=== PATIENT | female | born 1970 | race Caucasian/White ===

== ENCOUNTER 2017-06-19 08:03 | Emergency (ER) | payer MEDICARE ==
[2014-03-14 10:05] VITALS: BMI 22.0
[~2017-06-19 08:03] MED LIST: HYDROCODONE-APA1 TAB PO; MULTI-DAY VITAM1 TAB PO; PHENERGAN25 MG RC; SOMA350 MG PO; TOPAMAX25 MG PO; VITAMIN B-121000 MC3 PO; ZOFRAN ODT4 MG/UDTAB PO
== END 2017-06-19 08:57 | disposition home or self-care (01) ==
LOC: D.ER 08:03
DX: S67.02XA Crushing injury of left thumb, initial encounter (principal); W20.8XXA Other cause of strike by thrown, projected or falling object, initial encounter; Y93.89 Activity, other specified; Y92.029 Unspecified place in mobile home as the place of occurrence of the external cause; S61.002A Unspecified open wound of left thumb without damage to nail, initial encounter; L08.9 Local infection of the skin and subcutaneous tissue, unspecified

== ENCOUNTER 2017-12-07 18:43 | Emergency (ER) | payer MEDICARE ==
[2014-03-14 10:05] VITALS: BMI 22.0
== END 2017-12-07 21:05 | disposition home or self-care (01) ==
LOC: D.ER 18:43
DX: J18.9 Pneumonia, unspecified organism (principal)

== ENCOUNTER 2018-06-14 20:26 | Emergency (ER) | payer MEDICARE, MEDICAID ==
[~2018-06-14] VITALS: Ht 157.5 cm; Wt 54.5 kg
[2018-06-14 20:30] VITALS: Ht 157.5 cm; Wt 54.5 kg
[2018-06-14] MEDS ORDERED: XANAX0.5 MG PO (20:34)
[2018-06-14 21:56] LABS: BASOPHILS 0.2 % (0-2); EOSINOPHILS 0 % (0-7); HEMATOCRIT 37.6 % (36.0-48.0); HEMOGLOBIN 12.9 g/dL (12-16); IMMATURE GRANULOCYTES 0.3 % (0-5); LYMPHOCYTES 4.4 % (15-50); MCH 33.4 pg (26.0-34.0); MCHC 34.3 g/dL (31.0-37.0); MCV 97.4 fL (80.0-100.0); MEAN PLATELET VOLUME 9.2 fL (7.4-10.4); MONOCYTES 7.5 % (2-11); NEUTROPHILS 87.6 % (40-80); RBC 3.86 10x6/uL (4.00-5.40); RDW 13.3 % (11.5-14.5); WBC 12.2 10x3/uL (4.8-10.8)
[2018-06-14 22:01] LABS: PLATELET COUNT 322 10x3/uL (130-400)
[2018-06-14 22:15] LABS: ALBUMIN 4.1 g/dL (3.4-5.0); ANION GAP 20.5 mmol/L (8-16); BILIRUBIN - TOTAL 0.55 mg/dL (0.2-1.3); CARBON DIOXIDE 22.4 mmol/L (21.0-32.0); CREATININE - SERUM 1.5 mg/dL (0.6-1.3); POTASSIUM - SERUM 3.9 mmol/L (3.5-5.1); PROTEIN - SERUM 7.9 g/dL (6.4-8.2)
[2018-06-14 22:43] LABS: APPEARANCE CLEAR (CLEAR); BILIRUBIN NEGATIVE (NEGATIVE); COLOR YELLOW (YELLOW); GLUCOSE NEGATIVE (NEGATIVE); KETONE MODERATE mg/dL (NEGATIVE); NITRITE NEGATIVE (NEGATIVE); PROTEIN TRACE mg/dL (NEGATIVE); UROBILINOGEN NORMAL (NORMAL)
[2018-06-14] MEDS ORDERED: PHENERGAN25 M1 PO (23:10)
[2018-06-14] MEDS ORDERED: ZOFRAN ODT4 MG/UDTAB PO (23:10)
[2018-06-14 23:25] VITALS: BP 124/91
== END 2018-06-14 23:25 | disposition home or self-care (01) ==
LOC: D.ER 20:26
PROVIDERS: Family Medicine
DX: A08.4 Viral intestinal infection, unspecified (principal); F41.9 Anxiety disorder, unspecified; R11.0 Nausea; K21.9 Gastro-esophageal reflux disease without esophagitis

== ENCOUNTER 2020-03-17 16:21 | Inpatient (IN) | payer MEDICARE, MEDICAID ==
[~2020-03-17] VITALS: Ht 157.5 cm; Wt 56.0 kg
[~2020-03-17 16:21] MED LIST changes: +PHENERGAN25 M1 PO; +XANAX0.5 MG PO
[2020-03-17 16:53] LABS: HEMATOCRIT 41.4 % (36.0-48.0); HEMOGLOBIN 14.1 g/dL (12-16); LYMPHOCYTES 9.6 % (15-50); MCH 31.8 pg (26.0-34.0); MCHC 34.1 g/dL (31.0-37.0); MCV 93.2 fL (80.0-100.0); MEAN PLATELET VOLUME 8.4 fL (7.4-10.4); NEUTROPHILS 81.2 % (40-80); RBC 4.44 10x6/uL (4.00-5.40); WBC 13.3 10x3/uL (4.8-10.8)
[2020-03-17 16:55] LABS: PLATELET COUNT 483 10x3/uL (130-400)
[2020-03-17 16:56] VITALS: BP 115/95
[2020-03-17 16:57] LABS: BILIRUBIN NEGATIVE (NEGATIVE); GLUCOSE NEGATIVE (NEGATIVE); KETONE NEGATIVE (NEGATIVE); NITRITE NEGATIVE (NEGATIVE); SPECIFIC GRAVITY 1.025 (1.005-1.020); UROBILINOGEN NORMAL (NORMAL)
[2020-03-17 16:58] LABS: BACTERIA MANY /hpf (NEGATIVE); EPITHELIAL CELLS 0-5 /hpf (0-5); GRANULAR CAST 0-5 /lpf (NONE SEEN); HYALINE CAST 0-5 /lpf (NONE SEEN); WHITE CELLS - URINE 0-5 /hpf (NEGATIVE)
[2020-03-17 17:10] LABS: ALBUMIN 4.7 g/dL (3.4-5.0); ANION GAP 14.9 mmol/L (8-16); BILIRUBIN - TOTAL 0.46 mg/dL (0.2-1.3); CALCIUM 9.8 mg/dL (8.5-10.1); CARBON DIOXIDE 30.6 mmol/L (21.0-32.0); CREATININE - SERUM 2.2 mg/dL (0.6-1.3); PROTEIN - SERUM 8.8 g/dL (6.4-8.2); TROPONIN-I 0.052 ng/mL (0.000-0.060)
[2020-03-17 17:12] LABS: POTASSIUM - SERUM 2.5 mmol/L (3.5-5.1)
--- NOTE | 2020-03-17 19:45 | NUR ---
PT ARRIVED TO FLOOR FROM ER DURING SHIFT CHANGE. IV INFUSING ZOFRAN, KCL RIDE(2 OF 2) AND NS BOLUS ON TRANSFER. HUNG NS W/20 K @ 125 CONTINUOUS. BILAT HANDS CRAMPED/DRAWN UP. UNABLE TO HOLD PHONE OR GRASP. PT STATED HER HANDS STARTED "DRAWING UP" 2 DAYS AGO. C/O CRAMPING PAIN IN HANDS, LEGS AND FEET 04/05. REVIEWED HISTORY AND HOME MEDS. PROVIDED INCENTIVE SPIROMETER AND INSTRUCTED ON USE. PT REFUSES SCD'S. BED ALARM ON. FALL PRECAUTIONS IN PLACE. WILL CONTINUE TO MONITOR.
[2020-03-17] MEDS ORDERED: XANAX1 MG PO (20:12)
[2020-03-17] MEDS ORDERED: SOMA350 MG PO (20:13)
[2020-03-17] MEDS ORDERED: HYDROCODON-ACE1 EA10 PO (20:14)
[2020-03-17] MEDS ORDERED: PHENERGAN25 MG RC (20:17)
[2020-03-18 03:06] VITALS: BP 118/88; BMI 21.8
[2020-03-18 05:10] VITALS: BP 154/87
[2020-03-18 05:15] LABS: HEMATOCRIT 35.3 % (36.0-48.0); LYMPHOCYTES 12.1 % (15-50); MCV 94.1 fL (80.0-100.0); MEAN PLATELET VOLUME 8.7 fL (7.4-10.4); NEUTROPHILS 78.9 % (40-80); RBC 3.75 10x6/uL (4.00-5.40); RDW 14.4 % (11.5-14.5); WBC 10.8 10x3/uL (4.8-10.8)
[2020-03-18 05:19] LABS: PLATELET COUNT 380 10x3/uL (130-400)
[2020-03-18 05:25] LABS: ANION GAP 13.1 mmol/L (8-16); CALCIUM 8.2 mg/dL (8.5-10.1); CARBON DIOXIDE 26.2 mmol/L (21.0-32.0)
[2020-03-18 05:26] LABS: CREATININE - SERUM 1.5 mg/dL (0.6-1.3); POTASSIUM - SERUM 3.3 mmol/L (3.5-5.1)
--- NOTE | 2020-03-18 06:15 | NUR ---
COLLECTED 0500 UA BY IN/OUT CATH ORDERED AND SENT TO LAB. POTASSIUM 3.3 THIS AM. PT STILL NAUSEATED AND UNABLE TO HOLD WATER DOWN. HUNG KCL 10 MEQ RIDER PER 1 OF 4 PER PROTOCOL. NO OTHER NEEDS. WILL CONTINUE TO MONITOR.
--- NOTE | 2020-03-18 07:30 | NUR ---
PT RESTING IN BED, REPORTS SMALL AMOUNT OF VOMITUS THIS AM. REPORTS PAIN 6/10 AT THIS TIME. IV TO LEFT FOREARM WITH NS W/ 20KCL @ 125ML/HR, ZOFRAN @ 4.7ML/HR BOTH INFUSING VIA PUMP. SITE WITHOUT REDNESS OR EDEMA. PT CONTINUES TO VOICE NAUSEA AT TIMES AND REQUEST PO OR SUPPOSITORY PHENERGAN. INFORMED PT THAT WOULD TALK WITH MD REGARDING THIS MATTER. PT WAS RECEPTIVE TO THIS. PT DENIES NEEDS AT THIS TIME. CL WITHIN REACH. ENCOURAGED TO CALL WITH NEEDS. CONTINUE POC
[2020-03-18 08:36] VITALS: BP 140/93
[2020-03-18 08:36] LABS: BILIRUBIN NEGATIVE (NEGATIVE); GLUCOSE NEGATIVE (NEGATIVE); KETONE NEGATIVE (NEGATIVE); NITRITE POSITIVE (NEGATIVE); UROBILINOGEN NORMAL (NORMAL)
[2020-03-18 08:37] LABS: BACTERIA MANY /hpf (NEGATIVE); RED CELLS - URINE 0-5 /hpf (0-5); WHITE CELLS - URINE 0-5 /hpf (NEGATIVE)
[2020-03-18 08:38] LABS: EPITHELIAL CELLS OCC /hpf (0-5)
[2020-03-18 12:11] VITALS: Ht 157.5 cm; Wt 56.0 kg
[2020-03-18 12:24] VITALS: BP 159/83
[2020-03-18 16:15] VITALS: BP 153/96
--- NOTE | 2020-03-18 17:55 | NUR ---
PT REPORTS CONTINUED EMESIS THROUGHOUT THE DAY, PARTICULARLY UPON ATTEMPTING TO DRINK WATER OR CONSUME ICE CHIPS. ZOFRAN CONTINUES TO INFUSE @ 4.7ML/HR. PT REQUEST PHENERGAN SUPPOSITORY. ADMINISTERED PHENERGAN PER MD ORDERS. AN ADDITIONAL 100ML OF CLEAR LIGHT GREEN EMESIS NOTED AT THIS TIME. WILL CONTINUE TO MONITOR NAUSEA AND VOMITING POST PHENERGAN SUPPOSITORY.
[2020-03-18 20:27] VITALS: BP 129/93
[2020-03-19 00:33] VITALS: BP 124/86
[2020-03-19 04:00] VITALS: BP 148/92
[2020-03-19 05:55] LABS: BASOPHILS 0.1 % (0-2); EOSINOPHILS 0.4 % (0-7); HEMATOCRIT 33.1 % (36.0-48.0); HEMOGLOBIN 11.2 g/dL (12-16); IMMATURE GRANULOCYTES 0.4 % (0-5); MCH 32.3 pg (26.0-34.0); MCHC 33.8 g/dL (31.0-37.0); MCV 95.4 fL (80.0-100.0); MEAN PLATELET VOLUME 9.1 fL (7.4-10.4); MONOCYTES 9.2 % (2-11); NEUTROPHILS 77.9 % (40-80); PLATELET COUNT 338 10x3/uL (130-400); RBC 3.47 10x6/uL (4.00-5.40); RDW 14.1 % (11.5-14.5); WBC 8.2 10x3/uL (4.8-10.8)
--- NOTE | 2020-03-19 06:18 | NUR ---
I have reviewed this patient and I concur with the Shift Assessment completed by the Licensed Practical Nurse today this shift.
[2020-03-19 06:41] LABS: ANION GAP 13.7 mmol/L (8-16); BILIRUBIN - TOTAL 0.37 mg/dL (0.2-1.3); CALCIUM 8.1 mg/dL (8.5-10.1); CARBON DIOXIDE 24.5 mmol/L (21.0-32.0); POTASSIUM - SERUM 4.2 mmol/L (3.5-5.1)
[2020-03-19 06:56] LABS: PROTEIN - SERUM 5.7 g/dL (6.4-8.2)
[2020-03-19 09:01] VITALS: BP 146/99
[2020-03-19 12:37] VITALS: BP 140/83
[2020-03-19 16:47] VITALS: BP 151/91
[2020-03-19 20:00] VITALS: BP 167/67
[2020-03-20] VITALS: BP 126/86
--- NOTE | 2020-03-20 00:10 | NUR ---
REC'D IN BED EYES CLOSED RESP DEEP AND EVEN.SITTING POSITION.MONITOR SHOWING SINUS RHYTHM.WILL CONTINUE TO MONITOR FOR ANY CHGES AND FOLLOW CURRENT PLAN OF CARE
--- NOTE | 2020-03-20 03:48 | NUR ---
I have reviewed this patient and I concur with the Shift Assessment completed by the Licensed Practical Nurse today this shift.
[2020-03-20 04:00] VITALS: BP 133/86
[2020-03-20 05:22] LABS: BASOPHILS 0.3 % (0-2); EOSINOPHILS 1.1 % (0-7); HEMATOCRIT 34.6 % (36.0-48.0); HEMOGLOBIN 11.6 g/dL (12-16); IMMATURE GRANULOCYTES 0.3 % (0-5); LYMPHOCYTES 18.5 % (15-50); MCH 31.9 pg (26.0-34.0); MCHC 33.5 g/dL (31.0-37.0); MCV 95.1 fL (80.0-100.0); MEAN PLATELET VOLUME 8.9 fL (7.4-10.4); NEUTROPHILS 70.8 % (40-80); PLATELET COUNT 357 10x3/uL (130-400); RBC 3.64 10x6/uL (4.00-5.40); RDW 13.4 % (11.5-14.5)
[2020-03-20 05:36] LABS: ANION GAP 10.1 mmol/L (8-16); BILIRUBIN - TOTAL 0.46 mg/dL (0.2-1.3); CALCIUM 8.8 mg/dL (8.5-10.1); CARBON DIOXIDE 27.9 mmol/L (21.0-32.0); CREATININE - SERUM 1.1 mg/dL (0.6-1.3); PROTEIN - SERUM 6.2 g/dL (6.4-8.2)
--- NOTE | 2020-03-20 07:45 | NUR ---
PT RESTING QUIETLY IN BED WITH EYES CLOSED. OPENS EYES SPONTANEOUSLY STAFF ENTERS ROOM. RESP EVEN AND UNLABORED. PT REPORTS PAIN /10 AT THIS TIME. DISCUSSED NEXT TIME PAIN MEDICATION CAN BE ADMINISTERED. PTVOICES UNDERSTANDING. PT DENIES N/V SINCE 0600 03/19/2020. IV TO LEFT FOREARM WITH NS W/20KCL @ 125ML/HR INFUSING VIA PUMP. SITE WITHOUT REDNESS OR EDEMA. DENIES FURTHER NEEDS AT THIS TIME. CL WITHIN REACH. ENCOURAGED TO CALL WITH NEEDS. CONTINUE POC
[2020-03-20 09:10] VITALS: BP 134/89
[2020-03-20] MEDS ORDERED: FLORAJEN3 CAPS460 MG PO (11:34)
[2020-03-20] MEDS ORDERED: LEVAQUIN750 MG PO (11:35)
--- NOTE | 2020-03-20 12:55 | NUR ---
PT REPORTS VOMITING SMALL AMOUNT OF EMESIS AFTER CONSUMING LUNCH. ASKED WHAT WAS EATEN. PT VOICES DRINKING SMALL AMOUNT OF COLA AND SMAL BITE OF ICE CREAM. EDUCATED PT REGARDING DIET, AVOIDING CARBONATED BEVERAGES. DISCUSSED WITH PT ABOUT PENDING D/C AND IF SHE WOULD BE D/C'D. INSTRUCTED PT THAT STAFF WOULD CONTACT MD REGARDING MATTER.
--- NOTE | 2020-03-20 13:11 | MORECARE ---
CASE MANAGEMENT DISCHARGE SUMMARY PATIENT: JUAN DIEGO CUMMINGS UNIT: [id number] ADM DATE: 03/17/20 AGE: 49 : [birth year] SEX: F ROOM/BED: D.2203 AUTHOR: ANASTACIO,DOC PHYSICIAN: REFERRING PHYSICIAN: CHRISTIANA KINGSLEY MD DATE OF SERVICE: 03/20/20 Discharge Plan Patient Name: JUAN DIEGO CUMMINGS Facility: [facility]:[place] : 1970 Planned Disposition: Home or Self Care Anticipated Discharge Date: Discharge Date: Expected LOS: Initial Reviewer: [email or web address] Initial Review Date: 03/17/2020 Generated: 03/20/20 2:10 pm Comments DCP- Discharge Planning Updated by [email or web address]: Brianna Hatch on 03/20/20 12:[address] Patient Name: JUAN DIEGO CUMMINGS Admission Status: ER Accout number: [id number] Admission Date: 03-17-2020 : 1970 Admission Diagnosis:NONINFECTIVE GASTROENTERITIS AND COLITIS, UNSPECIFIED Attending: VENESSA Current LOS: 3 Anticipated DC Date: Planned Disposition: Home or Self Care Primary Insurance: [facility] MEDIC[facility] SOLUTIONS Discharge Planning Comments: CM met with patient to complete initial dc planning assessment. CM educated patient on the CM role and verbal consent given by patient to complete assessment. 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 At discharge patient plans to return home and feels this is a safe discharge. CM discussed availability of home health, rehab services, and medical equipment. Patient denied known discharge needs at this time. IMM served and explained copy given. CM will continue to follow and will assist as needed with dc plans/needs. Branch Service Associate: Brianna Hatch DCPIA - Discharge Planning Initial Assessment Updated by [email or web address]: Brianna Hatch on 03/20/20 1:08 pm * Is the patient Alert and Oriented? Yes * How many steps to enter\exit or inside your home? RAMP * PCP LIAM * Pharmacy [facility] * Preadmission Environment Home with Family * ADLs Independent * Equipment None * List name and contact numbers for known caregivers / representatives who currently or will assist patient after discharge: TODD (SPOUSE) [phone] * Verbal permission to speak to the caregivers and representatives has been obtained from the patient. N/A * Community resources currently utilized None * Additional services required to return to the preadmission environment? No * Can the patient safely return to the preadmission environment? Yes * Has this patient been hospitalized within the prior 30 days at any hospital? No Coverage Notice Reviewer: [id number] Afshin Hatch Notice Issued Date-Time: 03/20/2020 13:00 Notice Type: IM Discharge Notice Notice Delivered To: Patient Relationship to Patient: Golf Manager Name: Delivery Method: HAND - Hand Delivered Giovanna Days: Prior Verbal Notification: Recipient Understood Notice: Yes Recipient Signature: Yes Med Rec Note Co-signed by Attending: Coverage Notice Comment: Patient Name: JUAN DIEGO CUMMINGS Page [phone] at 1311 All edits/amendments must be made on the electronic document DICTATION DATE: 03/20/20 1311 ANODIZE MACHINE OPERATOR: TREVER 03/20/20 1311 RPT#: [id number] DC DATE: STATUS: ADM IN [facility] [address] [place] [address] END OF REPORT
--- NOTE | 2020-03-20 13:30 | NUR ---
PT DENIES FURTHER VOMITING OR NAUSEA AT THIS TIME. SPOKE WITH DELMA ASHBY APN AND DR. GARNETT REGARDING PT VOMITING. INFORMED BOTH THAT STAFF HAD HELD FLUIDS, INCLUDING ZOFRAN PREPARING FOR D/C. STAFF WAS INFORMED THAT THIS WAS NOT GOING TO HELP HER GASTRPARESIS. DR. GARNETT REQUEST D/C BE PUT ON HOLD AT THIS TIME AND THEY WOULD REASSESS HER STATUS. IMMEDIATELY RETURNED TO PT ROOM, IV FLUIDS AND ZOFRAN RESTARTED AT THIS TIME. INSTRUCTED PT THAT D/C WAS ON HOLD AT THIS TIME.
[2020-03-20 17:15] VITALS: BP 143/98
--- NOTE | 2020-03-20 18:17 | NUR ---
PT SITTING UP IN BED DRINKING APPLE JUICE. DENIES N/V AT THIS TIME. DENIES FURTHER NEEDS AT THIS TIME. CL WITHIN REACH. ENCOURAGED TO CALL WITH NEEDS.
[2020-03-20 20:00] VITALS: BP 120/82
[2020-03-21] VITALS: BP 116/75
[2020-03-21 04:00] VITALS: BP 114/67
[2020-03-21 06:58] LABS: BASOPHILS 0.5 % (0-2); EOSINOPHILS 2.2 % (0-7); HEMATOCRIT 34.4 % (36.0-48.0); HEMOGLOBIN 11.4 g/dL (12-16); IMMATURE GRANULOCYTES 0.7 % (0-5); LYMPHOCYTES 24.2 % (15-50); MCH 31.6 pg (26.0-34.0); MCHC 33.1 g/dL (31.0-37.0); MCV 95.3 fL (80.0-100.0); MEAN PLATELET VOLUME 9.1 fL (7.4-10.4); MONOCYTES 11.5 % (2-11); NEUTROPHILS 60.9 % (40-80); PLATELET COUNT 419 10x3/uL (130-400); RBC 3.61 10x6/uL (4.00-5.40); RDW 13.3 % (11.5-14.5)
[2020-03-21 07:03] LABS: ALBUMIN 3.2 g/dL (3.4-5.0); ANION GAP 8.2 mmol/L (8-16); BILIRUBIN - TOTAL 0.51 mg/dL (0.2-1.3); CALCIUM 8.5 mg/dL (8.5-10.1); CARBON DIOXIDE 29.5 mmol/L (21.0-32.0); CREATININE - SERUM 1.1 mg/dL (0.6-1.3); POTASSIUM - SERUM 3.7 mmol/L (3.5-5.1); PROTEIN - SERUM 6.3 g/dL (6.4-8.2)
[2020-03-21 07:14] LABS: HEPATITIS C ANTIBODY 0.2 S/CO RAT (0.0-0.9)
--- NOTE | 2020-03-21 07:28 | NUR ---
I have reviewed this patient and I concur with the Shift Assessment completed by the Licensed Practical Nurse today this shift.
--- NOTE | 2020-03-21 08:00 | NUR ---
PATIENT IN TEARS UPON ENTERING HER ROOM. STATES SHE HASN'T HAD ANY SLEEP FOR 5 DAYS. REALLY UPSET BECAUSE IV POLE KEEP "BEEPING" ALL NIGHT. SHE STATED SHE FINALLY TOLD THEM TO SHUT IT OFF AND WHEN THE MACHINE STARTED HAVING A "SYSTEM FAILURE" THEN THEY TURNED IT OFF. STATED SHE WAS IN 9 OUT OF 10 IN PAIN. CL IN REACH. TOLD HER I WOULD BRING HER PAIN MED SOON I SAW MY OTHER PATIENTS. NO FURTHER NEEDS AT THIS TIME. RADHA
--- NOTE | 2020-03-21 09:35 | NUR ---
ASKED PATIENT WHICH SHE THOUGHT WAS WORSE PAIN OR ANXIETY. PATIENT STATED ANXIETY. I REPLIED I CAN TREAT HER PAIN IN 2 HOURS. PATIENT LEFT FOREARM IV INFILTRATED. CL IN REACH. WCTM
--- NOTE | 2020-03-21 10:53 | NUR ---
ATTEMPTED 2 IV STARTS WITH 22 G. FAILED BOTH TIMES. DIEGO MENDENHALL ATTEMPTED IN AC WITH 22 G AND FAILED. VASCULAR ACCESS CALLED. CL IN REACH. PT SEEMS "CALMER" NOW. WCTM
[2020-03-21 11:05] VITALS: BP 122/80
--- NOTE | 2020-03-21 12:43 | NUR ---
Nutrition follow-up: Diet advanced regular soft PO intake fair; pt continues with some nausea, vomiting due to gastroparesis Labs reviewed Wt: 123# Will offer nutritional supplements. RDN following.
--- NOTE | 2020-03-21 13:55 | NUR ---
PATIENT AND FAMILY VERBALIZED UNDERSTANDING OF DISCHARGE INSTRUCTIONS AND MEDICATIONS. IV THERAPY REMOVED FROM LEFT FOREARM WITH TIP INTACT AND RIGHT WRIST TIP INTACT. REFUSED WHEELCHAIR DOWN.
[2020-03-21 15:07] VITALS: BP 132/79
--- NOTE | 2020-03-21 15:27 | NUR ---
IV THERAPY DC'ED FROM RIGHT HAND TIP INTACT. DISCHARGE INSTRUCTIONS GIVEN. PATIENT VERBALIZED UNDERSTANDING. WILL NOTIFY ME WHEN RIDE IS HERE.
--- NOTE | 2020-03-22 11:55 | MORECARE ---
CASE MANAGEMENT DISCHARGE SUMMARY PATIENT: JUAN DIEGO CUMMINGS UNIT: [id number] ADM DATE: 03/17/20 AGE: 49 : 68 SEX: F ROOM/BED: D.2203 AUTHOR: ANASTACIO,DOC PHYSICIAN: REFERRING PHYSICIAN: CHRISTIANA KINGSLEY MD DATE OF SERVICE: 03/22/20 Discharge Plan Patient Name: JUAN DIEGO CUMMINGS Facility: [facility]:[place] : 1970 Planned Disposition: Home or Self Care Anticipated Discharge Date: Discharge Date: 03/21/2020 Expected LOS: Initial Reviewer: [email or web address] Initial Review Date: 03/17/2020 Generated: 03/22/20 12:55 pm Comments DCP- Discharge Planning Updated by [email or web address]: Brianna Hatch on 03/20/20 12:[address] Patient Name: JUAN DIEGO CUMMINGS Admission Status: ER Accout number: [id number] Admission Date: 03-17-2020 : 1970 Admission Diagnosis:NONINFECTIVE GASTROENTERITIS AND COLITIS, UNSPECIFIED Attending: VENESSA Current LOS: 3 Anticipated DC Date: Planned Disposition: Home or Self Care Primary Insurance: [facility] MEDICARE SOLUTIONS Discharge Planning Comments: CM met with patient to complete initial dc planning assessment. CM educated patient on the CM role and verbal consent given by patient to complete assessment. 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 At discharge patient plans to return home and feels this is a safe discharge. CM discussed availability of home health, rehab services, and medical equipment. Patient denied known discharge needs at this time. IMM served and explained copy given. CM will continue to follow and will assist as needed with dc plans/needs. Percussion Teacher: Brianna Hatch DCPIA - Discharge Planning Initial Assessment Updated by [email or web address]: Brianna Hatch on 03/20/20 1:08 pm * Is the patient Alert and Oriented? Yes * How many steps to enter\exit or inside your home? RAMP * PCP LIAM * Pharmacy [facility] * Preadmission Environment Home with Family * ADLs Independent * Equipment None * List name and contact numbers for known caregivers / representatives who currently or will assist patient after discharge: TODD (SPOUSE) [phone] * Verbal permission to speak to the caregivers and representatives has been obtained from the patient. N/A * Community resources currently utilized None * Additional services required to return to the preadmission environment? No * Can the patient safely return to the preadmission environment? Yes * Has this patient been hospitalized within the prior 30 days at any hospital? No Coverage Notice Reviewer: [id number] Afshin Hatch Notice Issued Date-Time: 03/20/2020 13:00 Notice Type: IM Discharge Notice Notice Delivered To: Patient Relationship to Patient: Consultants Intern Name: Delivery Method: HAND - Hand Delivered Giovanna Days: Prior Verbal Notification: Recipient Understood Notice: Yes Recipient Signature: Yes Med Rec Note Co-signed by Attending: Coverage Notice Comment: Last DP export: 03/20/20 12:11 p Patient Name: JUAN DIEGO CUMMINGS Page [phone] at 1155 All edits/amendments must be made on the electronic document DICTATION DATE: 03/22/20 1155 DEFENSE ATTORNEY: TREVER 03/22/20 1155 RPT#: [id number] DC DATE:03/21/20 STATUS: DIS IN [facility] [address] [place] [address] END OF REPORT
== END 2020-03-21 16:06 | disposition home or self-care (01) | DRG 392 ==
LOC: D.ER 16:21 → D.MS 18:22 → D.ER 18:33 → D.MS 03-21 16:06
PROVIDERS: Emergency Medicine; Family Medicine; ADMIT Family Medicine; ATTEND Family Medicine
DX: K52.9 Noninfective gastroenteritis and colitis, unspecified (principal); N17.9 Acute kidney failure, unspecified; R11.2 Nausea with vomiting, unspecified; E86.0 Dehydration; D64.9 Anemia, unspecified; K31.84 Gastroparesis; K21.9 Gastro-esophageal reflux disease without esophagitis; F41.9 Anxiety disorder, unspecified; Z72.0 Tobacco use; M19.90 Unspecified osteoarthritis, unspecified site; E83.42 Hypomagnesemia; E87.6 Hypokalemia

== ENCOUNTER → 2020-06-17 09:33 | Outpatient (CLI) | payer MEDICARE, MEDICAID ==
[2020-03-18 12:11] VITALS: BMI 21.7
[~2020-06-17 09:33] MED LIST changes: +FLORAJEN3 CAPS460 MG PO; +HYDROCODON-ACE1 EA10 PO; +LEVAQUIN750 MG PO; +XANAX1 MG PO
== END | disposition home or self-care (01) ==
LOC: D.MRI 09:33
PROVIDERS: ATTEND Orthopaedic Surgery
DX: S83.231A Complex tear of medial meniscus, current injury, right knee, initial encounter (principal); X58.XXXA Exposure to other specified factors, initial encounter

== ENCOUNTER → 2021-02-10 17:05 | Outpatient (CLI) | payer MEDICARE, MEDICAID ==
[2020-09-30 08:11] VITALS: BMI 22.9
[2021-02-10 18:42] LABS: BASOPHILS 1.3 % (0-2); EOSINOPHILS 0.9 % (0-7); HEMATOCRIT 41.9 % (36.0-48.0); HEMOGLOBIN 13.7 g/dL (12-16); LYMPHOCYTES 14.6 % (15-50); MCH 31.7 pg (26.0-34.0); MCHC 32.6 g/dL (31.0-37.0); MCV 97.3 fL (80.0-100.0); MEAN PLATELET VOLUME 7.5 fL (7.4-10.4); MONOCYTES 8.6 % (2-11); NEUTROPHILS 74.6 % (40-80); PLATELET COUNT 556 10x3/uL (130-400); RBC 4.31 10x6/uL (4.00-5.40); RDW 15.2 % (11.5-14.5); WBC 8.2 10x3/uL (4.8-10.8)
[2021-02-10 18:57] LABS: C-REACTIVE PROTEIN 8.9 mg/dL (0.0-0.9); URIC ACID 5.1 mg/dL (2.6-7.2)
[2021-02-10 19:57] LABS: EOS BF 4 %; MACROPHAGES BF 1 %; NEUT - BF 87 %
[2021-02-10 20:38] LABS: ERYTHROCYTE SEDIMENTATION RATE 50 mm/hr (0-30)
[2021-02-12 10:13] LABS: ANA REFLEX - DIRECT Negative (Negative)
== END | disposition home or self-care (01) ==
LOC: D.LABREF 17:05
PROVIDERS: ATTEND Clinical Nurse Specialist Family Health
DX: M25.561 Pain in right knee (principal)